=== PATIENT | male | born 1955 | race Caucasian/White ===

== ENCOUNTER 2018-02-03 10:47 | Emergency (ER) | payer SELFPAY ==
[2018-02-03 12:04] LABS: #Basophils 0.1 thou/uL (0.0-0.2); #Eosinphils 0.5 thou/uL (0.0-0.7); #Lymphocytes 1.9 thou/uL (1.20-3.40); #Monocytes 0.4 thou/uL (0.11-0.59); %Basophils 1.2 % (0.0-1.0); %Eosinophils 8.6 % (0.0-10.0); %Lymphocytes 32.6 % (21.0-51.0); %Monocytes 6.9 % (0.0-10.0); %Neutrophils 50.8 % (42.0-75.0); Hemoglobin 15.3 g/dL (14.0-18.0); Mean Corpuscular HGB CONC 35.8 g/dL (32.0-36.0); Mean Corpuscular Hemoglobin 30.3 pg (27.0-31.0); Mean Corpuscular Volume 84.5 fl (80.0-94.0); Mean Platelet Volume 7.4 fL (7.4-10.4); Platelet Count 235 thou/uL (130-400); RBC Distribution Width 12.6 % (11.5-14.5); Red Blood Cell (RBC) Count 5.06 mill/uL (4.70-6.10); White Blood Cell (WBC) Count 5.8 thou/uL (4.8-10.8)
[2018-02-03 12:23] LABS: Anion Gap 12 mmol/L (10-20); BUN (Urea Nitrogen) 15 mg/dL (8.4-25.7); Calc. Creatinine Clearance 0 mL/min (70-130); Calcium 9.2 mg/dL (7.8-10.44); Carbon Dioxide 22 mmol/L (23-31); Chloride 107 mmol/L (98-107); Estimated GFR-MDRD 47; Glucose 114 mg/dL (80-115); Potassium 4.4 mmol/L (3.5-5.1); Sodium 137 mmol/L (136-145)
[2018-02-03 12:26] LABS: CKMB 5.3 ng/mL (0-6.6); Troponin I Less than 0.010 ng/mL (< 0.028)
[2018-02-03] MEDS ORDERED: Amlodipine 5 MG TAB ONE (13:12)
[2018-02-03] MEDS ORDERED: cloNIDine 0.1 MG TAB ONE (14:30)
== END 2018-02-03 14:48 | disposition home or self-care (01) ==
LOC: ERS 10:47
DX: I10 Essential (primary) hypertension (principal); T46.1X5A Adverse effect of calcium-channel blockers, initial encounter; J44.9 Chronic obstructive pulmonary disease, unspecified; Z87.442 Personal history of urinary calculi; Z79.82 Long term (current) use of aspirin; Z79.899 Other long term (current) drug therapy; Z87.891 Personal history of nicotine dependence
CPT/HCPCS: 36415; 80048; 82553; 84484; 85025; 93005

== ENCOUNTER 2019-06-26 15:12 | Observation (INO) | payer SELFPAY ==
[~2019-06-26 15:12] MED LIST: Dexamethasone 20 MG/5 ML VIAL ONE; Lidocaine 1% PF 5 ML VIAL ONE; Ondansetron PF 4 MG/2 ML Vial ONE; PROPOFOL 200 MG/20 ML VIAL ONE
[2019-06-26 16:07] LABS: #Basophils 0.1 thou/uL (0.0-0.2); #Eosinphils 0.3 thou/uL (0.0-0.7); #Lymphocytes 2.4 thou/uL (1.20-3.40); #Monocytes 0.4 thou/uL (0.11-0.59); #Neutrophils 3.4 thou/uL (1.40-6.50); %Basophils 1.5 % (0.0-1.0); %Eosinophils 4.2 % (0.0-10.0); %Lymphocytes 36.3 % (21.0-51.0); %Monocytes 6.1 % (0.0-10.0); %Neutrophils 51.9 % (42.0-75.0); Hemoglobin 13.9 g/dL (14.0-18.0); Mean Corpuscular HGB CONC 35.2 g/dL (32.0-36.0); Mean Corpuscular Hemoglobin 30.5 pg (27.0-31.0); Mean Corpuscular Volume 86.6 fL (78.0-98.0); Mean Platelet Volume 7.4 fL (7.4-10.4); Platelet Count 258 thou/uL (130-400); RBC Distribution Width 12.4 % (11.5-14.5); Red Blood Cell (RBC) Count 4.56 mill/uL (4.70-6.10); White Blood Cell (WBC) Count 6.6 thou/uL (4.8-10.8)
[2019-06-26 16:28] LABS: Anion Gap 13 mmol/L (10-20); BUN (Urea Nitrogen) 23 mg/dL (8.4-25.7); Calc. Creatinine Clearance 0 mL/min (70-130); Calcium 9.4 mg/dL (7.8-10.44); Carbon Dioxide 22 mmol/L (23-31); Chloride 108 mmol/L (98-107); Estimated GFR-MDRD 36; Glucose 101 mg/dL (80-115); Potassium 4.8 mmol/L (3.5-5.1); Sodium 138 mmol/L (136-145)
[2019-06-26] MEDS ORDERED: Bacitracin Zinc Ointment 30 gm TUBE ONE (17:04)
[2019-06-26] MEDS ORDERED: Tobramycin Sulfate 1.2 GM VIAL ONE (17:04)
[2019-06-26] MEDS ORDERED: Sodium Chloride 0.9% 30 ML ONE (17:04)
[2019-06-26] MEDS ORDERED: Bupivacaine PF 0.5% 30 ML VIAL ONE (17:04)
[2019-06-26] MEDS ORDERED: Ondansetron PF 4 MG/2 ML Vial IV PRN (17:29)
[2019-06-26] MEDS ORDERED: Morphine 4 MG/ML VIAL SLOW IVP PRN (17:29)
[2019-06-26] MEDS ORDERED: Bisacodyl 10 MG SUPP PR PRN (17:29)
[2019-06-26] MEDS ORDERED: Milk Of Magnesia 30 ML UDCUP PO PRN (17:29)
[2019-06-26] MEDS ORDERED: Fentanyl 100 MCG/2 ML VIAL SLOW IVP PRN (17:29)
[2019-06-26] MEDS ORDERED: traMADol HCl 50 MG TAB PO PRN (17:29)
[2019-06-26] MEDS ORDERED: Communication Order-Pharmacy FS SCH (17:30)
[2019-06-26] MEDS ORDERED: Meperidine HCl/PF 25 MG/ML VIAL IM PRN (17:34)
[2019-06-26] MEDS ORDERED: Fentanyl 100 MCG/2 ML VIAL ONE (17:38)
[2019-06-26] MEDS ORDERED: Betamet Acet/Betamet Na Ph 30 MG/5 ML VIAL ONE (18:15)
[2019-06-26] MEDS ORDERED: Promethazine HCl 25 MG/ML VIAL IM PRN (18:50)
[2019-06-26] MEDS ORDERED: Ondansetron HCl/PF 4 MG/2 ML Vial IVP PRN (18:50)
[2019-06-26] MEDS ORDERED: Promethazine HCl 25 MG/ML VIAL SLOW IVP PRN (18:50)
[2019-06-26] MEDS ORDERED: Labetalol HCl 100 MG/20 ML VIAL ONE (20:04)
[2019-06-26] MEDS ORDERED: Aspirin 81 mg Enteric Coated Tablet PO SCH (21:00)
[2019-06-26] MEDS ORDERED: Verapamil 120 MG TAB PO PRN (21:23)
[2019-06-26] MEDS ORDERED: cloNIDine 0.2 MG TAB PO SCH (22:00)
[2019-06-26 23:33] VITALS: BMI 31.7
[2019-06-27] MEDS: PROVENTIL INHALER 6.7 G (200 INHALATIONS) INH PRN ×2 (03:30→07:03)
[2019-06-27] MEDS ORDERED: Vancomycin HCl 1 GM in Premix Bag 1 BAG IVPB SCH (04:00)
[2019-06-27] MEDS: Vancomycin HCl 1 GM in Premix Bag 1 BAG IVPB SCH ×2 (05:00→11:38)
[2019-06-27] MEDS: HYDROcodone/Acetaminophen 5/325 mg Tablet PO PRN ×2 (05:45→11:45)
[2019-06-27 06:09] LABS: #Monocytes 0.2 thou/uL (0.11-0.59); #Neutrophils 7.1 thou/uL (1.40-6.50); %Basophils 0.2 % (0.0-1.0); %Eosinophils 0.3 % (0.0-10.0); %Lymphocytes 12.3 % (21.0-51.0); %Monocytes 2.5 % (0.0-10.0); %Neutrophils 84.7 % (42.0-75.0); Hemoglobin 14.5 g/dL (14.0-18.0); Mean Corpuscular HGB CONC 33.7 g/dL (32.0-36.0); Mean Corpuscular Hemoglobin 30.1 pg (27.0-31.0); Mean Corpuscular Volume 89.5 fL (78.0-98.0); Mean Platelet Volume 7.2 fL (7.4-10.4); Platelet Count 254 thou/uL (130-400); RBC Distribution Width 12.6 % (11.5-14.5); White Blood Cell (WBC) Count 8.4 thou/uL (4.8-10.8)
[2019-06-27] MEDS: Mometasone/Formoterol 120 PUFF INHALER INH SCH ×2 (07:06→19:34)
[2019-06-27] MEDS: cloNIDine 0.2 MG TAB PO SCH ×2 (07:53→19:42)
[2019-06-27] MEDS ORDERED: cloNIDine 0.1 MG TAB PO PRN (08:03)
[2019-06-27] MEDS ORDERED: Labetalol HCl 100 MG/20 ML VIAL SLOW IVP PRN (08:03)
[2019-06-27] MEDS ORDERED: Aspirin 81 mg Enteric Coated Tablet PO SCH (09:00)
[2019-06-27] MEDS ORDERED: TETANUS AND DIPHTHERIA TOX/PF 0.5 ML DISP.SYRIN IM SCH (09:00)
--- NOTE | 2019-06-27 09:14 | PDOC.HOSPP ---
- Subjective Encounter Date: 06/27/19 Encounter Time: 08:30 Subjective: Patient seen and examined for med mngt. Follows Dr Lozano. No CP/SOB/ Palpitations. Pain controlled. No new complaints. No overnight events - Objective Vital Signs & Weight: Vital Signs (12 hours) Temp Pulse Resp BP BP Pulse Ox 06/27/19 07:53 146/85 H 06/27/19 07:06 68 16 98 06/27/19 07:03 68 16 98 06/27/19 03:17 97.7 F 68 16 149/80 H 96 06/26/19 23:37 97.9 F 68 18 158/90 H 97 06/26/19 22:18 179/97 H 06/26/19 21:25 97.8 F 61 18 177/98 H 177/98 H 98 Weight Weight 234 lb I&O: 06/26/19 06/27/19 06/28/19 06:59 06:59 06:59 Intake Total 1160 Output Total 700 Balance 460 Result Diagrams: 06/27/19 05:35 06/26/19 16:03 Additional Labs: Laboratory Tests 09/09/15 11/16/16 04:32 11:24 Total Bilirubin 0.6 AST 24 ALT 22 Cholesterol 280 H LDL Cholesterol, Calc 206 HDL Cholesterol 45 EKG Reviewed by me: Yes (Tele strip - SR) Hospitalist ROS - Review of Systems Respiratory: denies: cough, dry, shortness of breath, hemoptysis, SOB with excertion, pleuritic pain, sputum, wheezing, other Cardiovascular: denies: chest pain, palpitations, orthopnea, paroxysmal noc. dyspnea, edema, light headedness, other Gastrointestinal: denies: nausea, vomiting, abdominal pain, diarrhea, constipation, melena, hematochezia, other - Medication Medications: Active Medications Generic Name Dose Route Start Last Admin Trade Name Freq PRN Reason Stop Dose Admin Hydrocodone Bitart/Acetaminophen 2 tab 06/26/19 17:29 06/27/19 05:45 Barnard 5/325 PO 2 tab Q4H PRN Administration Severe Pain (7-10) Albuterol Sulfate 1 puff 06/26/19 21:24 06/27/19 07:03 Proventil Hfa INH 1 puff BIDPRN PRN Administration Wheezing Aspirin 81 mg 06/27/19 09:00 06/27/19 07:52 Ecotrin PO 81 mg DAILY RA Administration Clonidine 0.2 mg 06/27/19 09:00 06/27/19 07:53 Catapres PO 0.2 mg BID RA Administration Vancomycin HCl 1 gm/ Device 200 mls @ 200 mls/hr 06/27/19 04:00 06/27/19 05: 00 IVPB 200 mls 0400,1200 RA Administration Mometasone Furoate/Formoterol Fumar 2 puff 06/27/19 06:30 06/27/19 07:06 Dulera 200 Mcg/5 Mcg Inhaler INH 2 puff BID-RT RA Administration - Exam General Appearance: NAD Neck: supple, no JVD Heart: RRR, no gallops Respiratory: CTAB, no rales Gastrointestinal: soft, non-tender, normal bowel sounds Extremities: no edema Extremities - other findings: Right hand dressing + Neurological: no new deficit Psychiatric: normal affect, A&O x 3 Hosp A/P (1) COPD (chronic obstructive pulmonary disease) Status: Chronic (2) Hyperlipidemia Code(s): E78.5 - HYPERLIPIDEMIA, UNSPECIFIED Status: Chronic Qualifiers: Hyperlipidemia type: unspecified hyperlipidemia (3) Hypertension Code(s): I10 - ESSENTIAL (PRIMARY) HYPERTENSION Status: Chronic Qualifiers: Hypertension type: essential hypertension Qualified Code(s): I10 - Essential (primary) hypertension (4) CKD (chronic kidney disease) stage 3, GFR 30-59 ml/min Code(s): N18.3 - CHRONIC KIDNEY DISEASE, STAGE 3 (MODERATE) Status: Chronic - Plan DVT proph w/SCDs Cont Clonidine Cont Verapamil Add Nebs PRN Cont Symbicort Avoid Nephrotoxic agent
--- NOTE | 2019-06-27 09:40 | OP ---
DATE OF PROCEDURE: 06/26/2019 PREOPERATIVE DIAGNOSES: Abscess with osteomyelitis, right small finger, distal interphalangeal joint with marked joint erosion, irregularity. 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 PROCEDURES PERFORMED: 1. Arthrotomy with bone biopsy/debridement of bone to remove osteomyelitis. 2. Tenotomy by extensor mechanism after joint debridement, where we found great amount of tophi. SPECIMEN SENT: Gout paste from the tendon deposit and gout from the joint along with culture to rule out infection. TOURNIQUET TIME: 15 minutes. ESTIMATED BLOOD LOSS: 10 mL. DESCRIPTION OF PROCEDURE: After successful general endotracheal anesthesia, the limb was prepped and draped. The patient was brought to the emergency room because of possible emergent nature of this intra-articular lesion, possibly being consistent with some type of tumor involvement. After successful general endotracheal anesthesia with the patient having a block of 2 mL at the metacarpophalangeal joint level of the left small finger to augment the anesthesia, the patient then had the C-arm brought to the field, identified the joint, underwent J-shaped lazy type arthrotomy incision exposing the distal interphalangeal joint. We took an awl and placed it in the joint to allow for it to reach more. The patient's incision then was carried through skin and subcutaneous tissue on the mid lateral plane between collateral as well as the extensor mechanism centrally over distal phalangeal ulnar area. Here, under the skin, there was a great amount of tophaceous gout. Tophaceous gout occupied approximately 1/4 of the tendon width at the joint line and this was debrided using a combination of a curette, [place] blade, and irrigation. After we performed the arthrotomy, we could see that there was thick tophaceous gout in the joint and this was debrided as well using the same techniques. Once this was continued circumferentially around the joint, we had debrided it from both making the patient arthrotomy with debridement of the joint from synovial biopsy and bone biopsy accomplished. The tenotomy was completed and the tendon had over 85% of its width intact at any given point. Once we had done this, the patient then had the tourniquet deflated, and we waited for antibiotic bead placement take place and these had been used before and they were used to help with this patient's management. The tourniquet was deflated after we completed the debridement, we irrigated the joint out with Celestone anti-inflammatory steroid, 7 mL slowly, then we performed the wound closure with interrupted 4-0 nylon in a simple pattern and this covered the small beads well. The patient then had a closed wound with a 4-0 nylon, no evidence of anesthetic or operative complication, a bulky dressing was applied with a splint palmarly with the position of function. The patient left the operating room without evidence of anesthetic or operative complication. Job ID: [id number]
[2019-06-27 19:43] VITALS: BP 171/90
[2019-06-27 21:48] VITALS: TEMP 98
== END 2019-06-27 19:45 | disposition home or self-care (01) ==
LOC: ERS 15:12 → SJJU 16:35 → ERS 16:43 → SJJU 19:05
PROVIDERS: ADMIT Orthopaedic Surgery Hand Surgery; ATTEND Orthopaedic Surgery Hand Surgery
PROC: 0PBT0ZZ Excision of Right Finger Phalanx, Open Approach (ICD-10-PCS; principal; 2019-06-26)
PROC: 0L870ZZ Division of Right Hand Tendon, Open Approach (ICD-10-PCS; 2019-06-26)
DX: M86.8X4 Other osteomyelitis, hand (principal); M1A.9XX1 Chronic gout, unspecified, with tophus (tophi); I10 Essential (primary) hypertension; J44.9 Chronic obstructive pulmonary disease, unspecified; Z79.82 Long term (current) use of aspirin; Z79.899 Other long term (current) drug therapy; Z87.891 Personal history of nicotine dependence
CPT/HCPCS: 36415; 80048; 85025; 85652; 87070; 87205; 88304; 89060; 93005; 93010; 96365; 96366; 96375; 99284; C1713; G0378; J0702; J1100; J2001; J2405; J2704; J3010; J3260; J3370; J3490; J7620; S0020

== ENCOUNTER 2019-11-12 05:35 | Day surgery (SDC) | payer SELFPAY ==
[2019-11-12] MEDS ORDERED: Fentanyl 100 MCG/2 ML VIAL ONE (06:21)
[2019-11-12] MEDS ORDERED: Bacitracin Zinc Ointment 30 gm TUBE ONE (06:48)
[2019-11-12] MEDS ORDERED: Bupivacaine PF 0.5% 30 ML VIAL ONE ×2 (06:48→07:31)
[2019-11-12] MEDS ORDERED: Betamet Acet/Betamet Na Ph 30 MG/5 ML VIAL ONE (08:01)
[2019-11-12] MEDS ORDERED: Ketorolac Tromethamine 30 MG/ML VIAL ONE (08:36)
[2019-11-12] MEDS ORDERED: Ondansetron PF 4 MG/2 ML Vial ONE (13:17)
[2019-11-12] MEDS ORDERED: Lidocaine 1% PF 5 ML VIAL ONE (13:17)
[2019-11-12] MEDS ORDERED: Dexamethasone 20 MG/5 ML VIAL ONE (13:17)
[2019-11-12] MEDS ORDERED: PROPOFOL 200 MG/20 ML VIAL ONE (13:17)
[2019-11-12] MEDS ORDERED: ePHEDrine/0.9% NaCl/PF SYRINGE 50 mg/10 ml ONE (13:17)
--- NOTE | 2019-11-12 15:29 | OP ---
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 PROCEDURE PERFORMED: 1. Removal of antibiotic beads slightly dorsal and then lateral to the joint. 2. Removal of gouty tophi. COMPLICATIONS: None. ESTIMATED BLOOD LOSS: 10 mL. TOURNIQUET TIME: 18 minutes using a finger cot tourniquet method. SPECIMENS SENT: Gouty tophi and the antibiotic bead. DESCRIPTION OF PROCEDURE: After successful general endotracheal anesthesia, the limb was prepped and draped. Before prepping and draping, the patient had LMA placed and we then gave a 10 mL 0.5% Marcaine metacarpophalangeal block before prepping and draping. We then exsanguinated the limb using a finger cot tourniquet technique and we immediately used his old J-shaped incision centered over the dorsal DIP joint, carried through skin and subcutaneous tissue and C-arm was localized at one bead that was slightly dorsal and directly lateral till we removed this. There was tophi escaping from a defect in the tendon approximately 0.5 mm, so we opened the tendon, inspected it. There was no bead or infection, but there was gouty tophi. We removed all the gouty tophi visual from here and from the joint. We irrigated the area with 250 mL of normal saline. Then we infiltrated the remainder of the joint which was almost autofused with 5 mL of Celestone. We closed the tendon longitudinal defect with an interrupted [id number] 5-0 Monocryl, removed the finger cot tourniquet completely, so it was completely off the field with excellent return of circulation to the digit. We obtained hemostasis and closed the epidermis and dermis of one layer with interrupted 5-0 nylon of simple pattern. The patient left the operating room with C-arm confirming the joint was near autofused, there was no further antibiotic beads and no dislocation or subluxation. Job ID: [id number]
--- NOTE | 2019-11-12 16:35 | RAD ---
EXAM: INTRAOPERATIVE FLUOROSCOPY: 11/12/19 HISTORY: Foreign body removal. FINDINGS: Four fluoroscopic views of the fifth digit are noted. There appears to be destructive ndiaye e along the distal interphalangeal joint space. EXPOSURE: 0.4 mGy. 8 milliseconds. IMPRESSION: As above. POS: MANI
== END 2019-11-12 11:33 | disposition home or self-care (01) ==
LOC: SDC 05:35
PROVIDERS: ATTEND Orthopaedic Surgery Hand Surgery
PROC: 0PP Upper Bones, Removal (ICD-10-PCS; principal; 2019-11-12)
DX: M1A.9XX1 Chronic gout, unspecified, with tophus (tophi) (principal); I10 Essential (primary) hypertension; J44.9 Chronic obstructive pulmonary disease, unspecified; E78.5 Hyperlipidemia, unspecified; Z87.891 Personal history of nicotine dependence; Z79.899 Other long term (current) drug therapy
CPT/HCPCS: 76000; 88300; 88305; J0690; J0702; J1100; J1885; J2001; J2405; J2704; J3010; J3490; S0020

== ENCOUNTER 2022-06-16 06:49 | Outpatient (CLI) | payer MEDICARE | END 2022-06-16 06:50 | disposition home or self-care (01) | LOC: BICULT 06:49 | PROVIDERS: ATTEND Family Medicine | DX: Z12.2 Encounter for screening for malignant neoplasm of respiratory organs (principal); Z13.6 Encounter for screening for cardiovascular disorders; Z87.891 Personal history of nicotine dependence | CPT/HCPCS: 71271; 76775 ==

== ENCOUNTER 2022-10-26 10:56 | Emergency (ER) | payer MEDICARE ==
[~2022-10-26 10:56] MED LIST changes: -Dexamethasone 20 MG/5 ML VIAL ONE; +Iopamidol-370 76% 500 ML 1 ML ONE; -Lidocaine 1% PF 5 ML VIAL ONE; -Ondansetron PF 4 MG/2 ML Vial ONE; -PROPOFOL 200 MG/20 ML VIAL ONE
[2022-10-26 11:34] LABS: #Eosinphils 0.5 thou/uL (0.0-0.7); #Lymphocytes 1.8 thou/uL (1.20-3.40); #Monocytes 0.5 thou/uL (0.11-0.59); #Neutrophils 5.2 thou/uL (1.40-6.50); %Basophils 0.6 % (0.0-1.0); %Eosinophils 5.6 % (0.0-10.0); %Lymphocytes 22.1 % (21.0-51.0); %Monocytes 6.4 % (0.0-10.0); %Neutrophils 65.3 % (42.0-75.0); Hemoglobin 13.8 g/dL (14.0-18.0); Mean Corpuscular HGB CONC 33.1 g/dL (32.0-36.0); Mean Corpuscular Hemoglobin 29.4 pg (27.0-31.0); Mean Corpuscular Volume 88.9 fl (78.0-98.0); Mean Platelet Volume 8.4 fL (7.4-10.4); Platelet Count 282 10x3/uL (130-400); RBC Distribution Width 12.6 % (11.5-14.5); Red Blood Cell (RBC) Count 4.69 mill/uL (4.70-6.10)
[2022-10-26 11:39] LABS: ALT (SGPT) 22 U/L (8-55); AST (SGOT) 24 U/L (5-34); Albumin 3.8 g/dL (3.4-4.8); Alkaline Phosphatase 97 U/L (40-110); Anion Gap 15 mmol/L (10-20); BUN (Urea Nitrogen) 15 mg/dL (8.4-25.7); Bilirubin, Total 0.8 mg/dL (0.2-1.2); CK (CPK) 155 U/L (30-200); Calc. Creatinine Clearance 0 mL/min (70-130); Carbon Dioxide 24 mmol/L (23-31); Chloride 108 mmol/L (98-107); Estimated GFR 32; Globulin 2.5 g/dL (2.4-3.5); Glucose 152 mg/dL (80-115); Potassium 4.6 mmol/L (3.5-5.1); Protein, Total 6.3 g/dL (5.8-8.1); Sodium 142 mmol/L (136-145)
== END 2022-10-26 19:50 | disposition home or self-care (01) ==
LOC: ERS 10:56
DX: J44.9 Chronic obstructive pulmonary disease, unspecified (principal); N17.9 Acute kidney failure, unspecified; I10 Essential (primary) hypertension
CPT/HCPCS: 36415; 71045; 71275; 80053; 82550; 83880; 84484; 85025; 93005; Q9967

== ENCOUNTER 2022-12-22 07:33 | Outpatient (CLI) | payer MEDICARE | END 2022-12-22 07:34 | disposition home or self-care (01) | LOC: BICULT 07:33 | PROVIDERS: ATTEND Internal Medicine Nephrology | DX: I12.9 Hypertensive chronic kidney disease with stage 1 through stage 4 chronic kidney disease, or unspecified chronic kidney disease (principal); N18.30 Chronic kidney disease, stage 3 unspecified; R93.422 Abnormal radiologic findings on diagnostic imaging of left kidney | CPT/HCPCS: 76770; 93975 ==

== ENCOUNTER 2022-12-23 12:35 | Outpatient (CLI) | payer MEDICARE | END 2022-12-23 12:36 | disposition home or self-care (01) | LOC: ULT 12:35 | PROVIDERS: ATTEND Internal Medicine Cardiovascular Disease | DX: R06.02 Shortness of breath (principal); I34.0 Nonrheumatic mitral (valve) insufficiency; I35.8 Other nonrheumatic aortic valve disorders; I07.1 Rheumatic tricuspid insufficiency; I37.1 Nonrheumatic pulmonary valve insufficiency | CPT/HCPCS: 93306 ==

== ENCOUNTER 2023-05-26 09:44 | Emergency (ER) | payer MEDICARE ==
[2023-05-26 10:46] LABS: #Basophils 0.1 thou/uL (0.0-0.2); #Monocytes 0.3 thou/uL (0.11-0.59); #Neutrophils 7.8 thou/uL (1.40-6.50); %Basophils 0.5 % (0.0-1.0); %Eosinophils 0.4 % (0.0-10.0); %Lymphocytes 9.7 % (21.0-51.0); %Monocytes 2.9 % (0.0-10.0); %Neutrophils 85.1 % (42.0-75.0); Hematocrit 39.2 % (42.0-52.0); Hemoglobin 12.8 g/dL (14.0-18.0); Mean Corpuscular HGB CONC 32.7 g/dL (32.0-36.0); Mean Corpuscular Hemoglobin 28.7 pg (27.0-31.0); Mean Corpuscular Volume 87.9 fl (78.0-98.0); Mean Platelet Volume 9.9 fL (7.4-10.4); Platelet Count 324 10x3/uL (130-400); RBC Distribution Width 14.4 % (11.5-14.5); Red Blood Cell (RBC) Count 4.46 mill/uL (4.70-6.10); White Blood Cell (WBC) Count 9.2 10x3/uL (4.8-10.8)
[2023-05-26] MEDS ORDERED: Lidocaine 1% PF 5 ML VIAL ONE (11:10)
[2023-05-26 11:11] LABS: ALT (SGPT) 21 U/L (8-55); AST (SGOT) 17 U/L (5-34); Albumin 3.9 g/dL (3.4-4.8); Alkaline Phosphatase 86 U/L (40-110); Anion Gap 17 mmol/L (10-20); BUN (Urea Nitrogen) 27 mg/dL (8.4-25.7); Bilirubin, Total 0.6 mg/dL (0.2-1.2); Calc. Creatinine Clearance 0 mL/min (70-130); Calcium 9.4 mg/dL (7.8-10.44); Carbon Dioxide 23 mmol/L (23-31); Chloride 106 mmol/L (98-107); Estimated GFR 26; Globulin 3.4 g/dL (2.4-3.5); Glucose 149 mg/dL (80-115); Potassium 4.8 mmol/L (3.5-5.1); Protein, Total 7.3 g/dL (5.8-8.1); Sodium 141 mmol/L (136-145)
== END 2023-05-26 12:22 | disposition home or self-care (01) ==
LOC: ERS 09:44
DX: M70.22 Olecranon bursitis, left elbow (principal); I12.9 Hypertensive chronic kidney disease with stage 1 through stage 4 chronic kidney disease, or unspecified chronic kidney disease; N18.9 Chronic kidney disease, unspecified; J44.9 Chronic obstructive pulmonary disease, unspecified
CPT/HCPCS: 36415; 80053; 85025; 85652; 86140

== ENCOUNTER 2023-11-01 20:42 | Inpatient (IN) | payer MEDICARE ==
[2023-11-01 21:11] LABS: #Eosinphils 0.1 thou/uL (0.0-0.7); #Monocytes 0.7 thou/uL (0.11-0.59); #Neutrophils 12.3 thou/uL (1.40-6.50); %Basophils 0.1 % (0.0-1.0); %Eosinophils 0.8 % (0.0-10.0); %Lymphocytes 8.5 % (21.0-51.0); %Monocytes 4.7 % (0.0-10.0); %Neutrophils 85.4 % (42.0-75.0); Hematocrit 38.3 % (42.0-52.0); Hemoglobin 12.9 g/dL (14.0-18.0); Mean Corpuscular HGB CONC 33.7 g/dL (32.0-36.0); Mean Corpuscular Hemoglobin 28.2 pg (27.0-31.0); Mean Corpuscular Volume 83.6 fl (78.0-98.0); Mean Platelet Volume 10.9 fL (7.4-10.4); Platelet Count 293 10x3/uL (130-400); RBC Distribution Width 14.2 % (11.5-14.5); Red Blood Cell (RBC) Count 4.58 mill/uL (4.70-6.10); White Blood Cell (WBC) Count 14.4 10x3/uL (4.8-10.8)
[2023-11-01 21:34] LABS: ALT (SGPT) 23 U/L (8-55); AST (SGOT) 23 U/L (5-34); Albumin 3.6 g/dL (3.4-4.8); Alkaline Phosphatase 96 U/L (40-110); Anion Gap 14 mmol/L (10-20); BUN (Urea Nitrogen) 23 mg/dL (8.4-25.7); Bilirubin, Total 0.6 mg/dL (0.2-1.2); Calc. Creatinine Clearance 0 mL/min (70-130); Calcium 9.3 mg/dL (7.8-10.44); Carbon Dioxide 22 mmol/L (23-31); Chloride 103 mmol/L (98-107); Estimated GFR 25; Globulin 3.4 g/dL (2.4-3.5); Glucose 191 mg/dL (80-115); Potassium 4.4 mmol/L (3.5-5.1); Sodium 135 mmol/L (136-145)
[2023-11-01] MEDS ORDERED: Ketorolac Tromethamine 30 MG (1 mL) VIAL ONE (21:47)
[2023-11-01] MEDS ORDERED: Acetaminophen 500 MG TAB ONE (21:47)
[2023-11-01] MEDS ORDERED: Clindamycin/D5W 600 mg/50 ml Premix Bag ONE (21:47)
[2023-11-01] MEDS ORDERED: Cefepime 2 GM VIAL ONE (21:47)
[2023-11-01] MEDS ORDERED: Ondansetron ODT 4 MG TAB PO PRN (23:14)
[2023-11-01] MEDS ORDERED: Ondansetron PF 4 MG/2 ML Vial IVP PRN (23:14)
[2023-11-01] MEDS ORDERED: Acetaminophen 650 MG Suppository PR PRN (23:14)
[2023-11-01] MEDS ORDERED: HYDROcodone/Acetaminophen 5/325 mg Tablet PO PRN (23:14)
[2023-11-01] MEDS ORDERED: Acetaminophen 325 MG TAB PO PRN (23:14)
[2023-11-02 00:35] LABS: Lactic Acid 1.2 mmol/L (0.5-2.2)
[2023-11-02 01:53] VITALS: BMI 30.8
[2023-11-02] MEDS ORDERED: Clindamycin/D5W 600 MG in Premix 1 BAG IVPB SCH ×3 (06:00→14:00)
[2023-11-02 06:39] LABS: #Eosinphils 0.1 thou/uL (0.0-0.7); #Monocytes 0.7 thou/uL (0.11-0.59); %Basophils 0.2 % (0.0-1.0); %Eosinophils 0.9 % (0.0-10.0); %Monocytes 6.4 % (0.0-10.0); Hemoglobin 11.9 g/dL (14.0-18.0); Mean Corpuscular HGB CONC 32.2 g/dL (32.0-36.0); Mean Corpuscular Hemoglobin 27.7 pg (27.0-31.0); Mean Platelet Volume 10.8 fL (7.4-10.4); Platelet Count 240 10x3/uL (130-400); RBC Distribution Width 14.3 % (11.5-14.5); White Blood Cell (WBC) Count 11.6 10x3/uL (4.8-10.8)
[2023-11-02 06:48] LABS: Hemoglobin A1c 6.7 % (4.0-6.0)
[2023-11-02 07:01] LABS: Anion Gap 14 mmol/L (10-20); BUN (Urea Nitrogen) 24 mg/dL (8.4-25.7); Calc. Creatinine Clearance 38 mL/min (70-130); Calcium 8.9 mg/dL (7.8-10.44); Carbon Dioxide 23 mmol/L (23-31); Chloride 105 mmol/L (98-107); Estimated GFR 23; Glucose 131 mg/dL (80-115); Potassium 4.2 mmol/L (3.5-5.1); Sodium 138 mmol/L (136-145)
[2023-11-02] MEDS: Mometasone 200 MCG HFA INHALER (RT USE) INH SCH ×2 (08:30→19:26)
[2023-11-02] MEDS ORDERED: Vancomycin 1 GM in Premix 1 BAG IVPB SCH (09:00)
[2023-11-02] MEDS ORDERED: Cefepime 2 GM in Sodium Chloride 0.9% 100 ML IVPB SCH (09:00)
[2023-11-02] MEDS: cloNIDine 0.2 MG TAB PO SCH ×3 (09:16→22:10)
[2023-11-02] MEDS: Enoxaparin 40 MG (0.4 mL) SYRINGE SC SCH (09:16)
[2023-11-02] MEDS: Verapamil 240 MG SR.TAB PO SCH (11:10)
[2023-11-02] MEDS: Cefepime 1 GM in Sodium Chloride 0.9% 100 ML IVPB SCH (14:22)
[2023-11-02] MEDS: Ketorolac Tromethamine 30 MG (1 mL) VIAL IVP PRN ×2 (14:30→22:23)
[2023-11-02] MEDS: Vancomycin 1 GM in Premix 1 BAG IVPB SCH (22:10)
[2023-11-02] MEDS: Aspirin Chewable 81 MG TAB PO SCH (22:10)
[2023-11-03] MEDS: Cefepime 1 GM in Sodium Chloride 0.9% 100 ML IVPB SCH ×2 (01:51→11:47)
[2023-11-03 04:46] LABS: #Eosinphils 0.2 thou/uL (0.0-0.7); #Monocytes 0.5 thou/uL (0.11-0.59); #Neutrophils 6.2 thou/uL (1.40-6.50); %Basophils 0.2 % (0.0-1.0); %Eosinophils 2.5 % (0.0-10.0); %Lymphocytes 17.9 % (21.0-51.0); %Neutrophils 72.6 % (42.0-75.0); Hematocrit 33.7 % (42.0-52.0); Hemoglobin 11.1 g/dL (14.0-18.0); Mean Corpuscular HGB CONC 32.9 g/dL (32.0-36.0); Mean Corpuscular Hemoglobin 28.3 pg (27.0-31.0); Mean Platelet Volume 10.6 fL (7.4-10.4); Platelet Count 237 10x3/uL (130-400); RBC Distribution Width 14.3 % (11.5-14.5); Red Blood Cell (RBC) Count 3.92 mill/uL (4.70-6.10); White Blood Cell (WBC) Count 8.6 10x3/uL (4.8-10.8)
[2023-11-03 05:14] LABS: ALT (SGPT) 21 U/L (8-55); AST (SGOT) 24 U/L (5-34); Albumin 3.2 g/dL (3.4-4.8); Alkaline Phosphatase 86 U/L (40-110); Anion Gap 13 mmol/L (10-20); BUN (Urea Nitrogen) 32 mg/dL (8.4-25.7); Bilirubin, Total 0.4 mg/dL (0.2-1.2); CRP (Inflammatory) 22.69 mg/dL (= or < 0.5); Calc. Creatinine Clearance 40 mL/min (70-130); Carbon Dioxide 23 mmol/L (23-31); Chloride 107 mmol/L (98-107); Estimated GFR 25; Glucose 121 mg/dL (80-115); Potassium 4.4 mmol/L (3.5-5.1); Protein, Total 6.2 g/dL (5.8-8.1); Sodium 139 mmol/L (136-145)
[2023-11-03] MEDS ORDERED: Clindamycin/D5W 600 MG in Premix 1 BAG IVPB SCH (06:00)
[2023-11-03] MEDS ORDERED: Ondansetron PF 4 MG/2 ML Vial ONE (06:33)
[2023-11-03] MEDS ORDERED: PROPOFOL 20 ML ONE (06:33)
[2023-11-03] MEDS ORDERED: Dexamethasone 20 MG/5 ML VIAL ONE (06:33)
[2023-11-03] MEDS ORDERED: Lidocaine 1% PF 5 ML VIAL ONE (06:33)
[2023-11-03] MEDS ORDERED: fentaNYL PF 100 MCG/2 ML SYRINGE ONE (06:33)
[2023-11-03] MEDS ORDERED: Lidocaine 2% 6 ML (Jelly) SYR ONE (06:35)
[2023-11-03] MEDS ORDERED: Vancomycin 1 GM VIAL ONE (06:36)
[2023-11-03] MEDS ORDERED: Ondansetron HCl/PF 4 MG/2 ML Vial IVP PRN (06:58)
[2023-11-03] MEDS ORDERED: Promethazine HCl 25 MG/ML VIAL IM PRN (06:58)
[2023-11-03] MEDS ORDERED: HYDROmorphone 2 MG/ML VIAL SLOW IVP PRN (06:58)
[2023-11-03] MEDS ORDERED: Ipratropium/Albuterol 3 ML NEB ONE ×2 (07:05)
[2023-11-03] MEDS ORDERED: Ipratropium/Albuterol 3 ML NEB NEB SCH (07:15)
[2023-11-03] MEDS: Mometasone 200 MCG HFA INHALER (RT USE) INH SCH ×2 (07:16→18:48)
[2023-11-03] MEDS ORDERED: ePHEDrine Sulfate 50 MG/10 ML VIAL ONE (07:42)
[2023-11-03] MEDS: cloNIDine 0.2 MG TAB PO SCH ×3 (08:46→21:06)
[2023-11-03] MEDS: Verapamil 240 MG SR.TAB PO SCH (10:00)
[2023-11-03] MEDS: Ketorolac Tromethamine 30 MG (1 mL) VIAL IVP PRN ×2 (11:57→22:20)
[2023-11-03 20:53] LABS: Vancomycin, Trough 5.5 ug/mL
[2023-11-03] MEDS: Aspirin Chewable 81 MG TAB PO SCH (21:08)
[2023-11-03] MEDS: Vancomycin 1 GM in Premix 1 BAG IVPB SCH (21:11)
[2023-11-03] MEDS ORDERED: Vancomycin (BATCH) 1.75 GM in Premix 1 BAG IVPB SCH (21:15)
[2023-11-03] MEDS: Ipratropium/Albuterol 3 ML NEB NEB PRN (22:19)
[2023-11-04] MEDS: Cefepime 1 GM in Sodium Chloride 0.9% 100 ML IVPB SCH ×2 (00:07→12:05)
[2023-11-04] MEDS: Ketorolac Tromethamine 30 MG (1 mL) VIAL IVP PRN ×2 (06:27→22:20)
[2023-11-04 06:33] LABS: #Monocytes 0.5 thou/uL (0.11-0.59); #Neutrophils 7.8 thou/uL (1.40-6.50); %Basophils 0.2 % (0.0-1.0); %Eosinophils 0.4 % (0.0-10.0); %Lymphocytes 10.8 % (21.0-51.0); %Monocytes 5.1 % (0.0-10.0); %Neutrophils 82.5 % (42.0-75.0); Hematocrit 33.8 % (42.0-52.0); Hemoglobin 10.8 g/dL (14.0-18.0); Mean Corpuscular Hemoglobin 27.6 pg (27.0-31.0); Mean Corpuscular Volume 86.4 fl (78.0-98.0); Mean Platelet Volume 10.9 fL (7.4-10.4); Platelet Count 161 10x3/uL (130-400); RBC Distribution Width 14.3 % (11.5-14.5); Red Blood Cell (RBC) Count 3.91 mill/uL (4.70-6.10); White Blood Cell (WBC) Count 9.4 10x3/uL (4.8-10.8)
[2023-11-04] MEDS: Mometasone 200 MCG HFA INHALER (RT USE) INH SCH ×2 (06:51→18:29)
[2023-11-04 07:00] LABS: Anion Gap 15 mmol/L (10-20); BUN (Urea Nitrogen) 33 mg/dL (8.4-25.7); Calc. Creatinine Clearance 47 mL/min (70-130); Calcium 8.8 mg/dL (7.8-10.44); Carbon Dioxide 21 mmol/L (23-31); Chloride 109 mmol/L (98-107); Estimated GFR 31; Glucose 130 mg/dL (80-115); Potassium 5.1 mmol/L (3.5-5.1); Sodium 140 mmol/L (136-145)
[2023-11-04 07:04] LABS: Vancomycin, Random 19.2 ug/mL (See Comment)
[2023-11-04] MEDS: Verapamil 240 MG SR.TAB PO SCH (09:40)
[2023-11-04] MEDS: Famotidine 20 MG TAB PO SCH (09:40)
[2023-11-04] MEDS: cloNIDine 0.2 MG TAB PO SCH ×3 (09:40→20:47)
[2023-11-04] MEDS: Enoxaparin 40 MG (0.4 mL) SYRINGE SC SCH (09:40)
[2023-11-04] MEDS: Vancomycin HCl 500 MG in Sodium Chloride 0.9% 100 ML IVPB SCH ×2 (10:19→20:46)
[2023-11-04] MEDS: HYDROcodone/Acetaminophen 5/325 mg Tablet PO PRN (10:20)
[2023-11-04] MEDS: Aspirin Chewable 81 MG TAB PO SCH (20:47)
[2023-11-05] MEDS: Cefepime 1 GM in Sodium Chloride 0.9% 100 ML IVPB SCH ×3 (00:06→23:03)
[2023-11-05] MEDS: Ipratropium/Albuterol 3 ML NEB NEB PRN ×2 (03:55→19:27)
[2023-11-05 05:54] LABS: #Eosinphils 0.2 thou/uL (0.0-0.7); #Monocytes 0.4 thou/uL (0.11-0.59); #Neutrophils 5.6 thou/uL (1.40-6.50); %Basophils 0.2 % (0.0-1.0); %Eosinophils 1.8 % (0.0-10.0); %Lymphocytes 25.8 % (21.0-51.0); %Monocytes 5.2 % (0.0-10.0); %Neutrophils 66.2 % (42.0-75.0); Hemoglobin 11.4 g/dL (14.0-18.0); Mean Corpuscular HGB CONC 32.6 g/dL (32.0-36.0); Mean Corpuscular Hemoglobin 28.2 pg (27.0-31.0); Mean Corpuscular Volume 86.6 fl (78.0-98.0); Mean Platelet Volume 10.1 fL (7.4-10.4); RBC Distribution Width 14.3 % (11.5-14.5); Red Blood Cell (RBC) Count 4.04 mill/uL (4.70-6.10); White Blood Cell (WBC) Count 8.5 10x3/uL (4.8-10.8)
[2023-11-05 05:59] LABS: Platelet Count 290 10x3/uL (130-400)
[2023-11-05] MEDS: Mometasone 200 MCG HFA INHALER (RT USE) INH SCH ×2 (06:51→18:23)
[2023-11-05 07:51] LABS: Anion Gap 13 mmol/L (10-20); BUN (Urea Nitrogen) 28 mg/dL (8.4-25.7); Calc. Creatinine Clearance 55 mL/min (70-130); Calcium 9.1 mg/dL (7.8-10.44); Carbon Dioxide 21 mmol/L (23-31); Chloride 109 mmol/L (98-107); Estimated GFR 37; Glucose 118 mg/dL (80-115); Potassium 4.3 mmol/L (3.5-5.1); Sodium 139 mmol/L (136-145)
[2023-11-05] MEDS: cloNIDine 0.2 MG TAB PO SCH ×3 (07:59→21:20)
[2023-11-05] MEDS: Famotidine 20 MG TAB PO SCH (07:59)
[2023-11-05] MEDS: Verapamil 240 MG SR.TAB PO SCH (07:59)
[2023-11-05] MEDS: Vancomycin HCl 500 MG in Sodium Chloride 0.9% 100 ML IVPB SCH ×2 (11:01→21:22)
[2023-11-05] MEDS: Ketorolac Tromethamine 30 MG (1 mL) VIAL IVP PRN ×2 (11:08→23:19)
[2023-11-05] MEDS: Enoxaparin 40 MG (0.4 mL) SYRINGE SC SCH (11:18)
[2023-11-05 20:29] LABS: Vancomycin, Trough 14.7 ug/mL
[2023-11-05] MEDS: Aspirin Chewable 81 MG TAB PO SCH (21:20)
[2023-11-06 04:40] LABS: #Eosinphils 0.2 thou/uL (0.0-0.7); #Monocytes 0.5 thou/uL (0.11-0.59); #Neutrophils 5.7 thou/uL (1.40-6.50); %Basophils 0.2 % (0.0-1.0); %Eosinophils 2.8 % (0.0-10.0); %Monocytes 6.3 % (0.0-10.0); %Neutrophils 66.4 % (42.0-75.0); Hematocrit 34.7 % (42.0-52.0); Hemoglobin 11.2 g/dL (14.0-18.0); Mean Corpuscular HGB CONC 32.3 g/dL (32.0-36.0); Mean Corpuscular Hemoglobin 27.9 pg (27.0-31.0); Mean Corpuscular Volume 86.3 fl (78.0-98.0); Mean Platelet Volume 10.3 fL (7.4-10.4); Platelet Count 322 10x3/uL (130-400); RBC Distribution Width 14.2 % (11.5-14.5); Red Blood Cell (RBC) Count 4.02 mill/uL (4.70-6.10); White Blood Cell (WBC) Count 8.6 10x3/uL (4.8-10.8)
[2023-11-06 05:03] LABS: Anion Gap 13 mmol/L (10-20); BUN (Urea Nitrogen) 26 mg/dL (8.4-25.7); CRP (Inflammatory) 8.62 mg/dL (= or < 0.5); Calc. Creatinine Clearance 55 mL/min (70-130); Calcium 8.8 mg/dL (7.8-10.44); Carbon Dioxide 21 mmol/L (23-31); Chloride 110 mmol/L (98-107); Estimated GFR 37; Glucose 101 mg/dL (80-115); Potassium 4.5 mmol/L (3.5-5.1); Sodium 139 mmol/L (136-145)
[2023-11-06] MEDS: Mometasone 200 MCG HFA INHALER (RT USE) INH SCH ×2 (08:09→20:04)
[2023-11-06] MEDS: Ipratropium/Albuterol 3 ML NEB NEB PRN (08:10)
[2023-11-06] MEDS: Famotidine 20 MG TAB PO SCH (08:27)
[2023-11-06] MEDS: cloNIDine 0.2 MG TAB PO SCH ×3 (08:27→21:45)
[2023-11-06] MEDS: Verapamil 240 MG SR.TAB PO SCH (08:27)
[2023-11-06] MEDS: Enoxaparin 40 MG (0.4 mL) SYRINGE SC SCH (08:28)
[2023-11-06] MEDS: Vancomycin HCl 500 MG in Sodium Chloride 0.9% 100 ML IVPB SCH ×2 (08:29→21:45)
[2023-11-06] MEDS ORDERED: Polyethylene Glycol 3350 17 GM Packet PO SCH (09:00)
[2023-11-06] MEDS: Ketorolac Tromethamine 30 MG (1 mL) VIAL IVP PRN ×2 (10:25→21:47)
[2023-11-06] MEDS: Cefepime 1 GM in Sodium Chloride 0.9% 100 ML IVPB SCH (10:28)
[2023-11-06] MEDS: Aspirin Chewable 81 MG TAB PO SCH (21:45)
[2023-11-07] MEDS: Cefepime 1 GM in Sodium Chloride 0.9% 100 ML IVPB SCH (00:50)
[2023-11-07 07:01] LABS: Anion Gap 13 mmol/L (10-20); BUN (Urea Nitrogen) 23 mg/dL (8.4-25.7); Calc. Creatinine Clearance 56 mL/min (70-130); Calcium 8.8 mg/dL (7.8-10.44); Carbon Dioxide 22 mmol/L (23-31); Chloride 110 mmol/L (98-107); Estimated GFR 37; Glucose 104 mg/dL (80-115); Potassium 4.8 mmol/L (3.5-5.1); Sodium 140 mmol/L (136-145)
[2023-11-07 07:24] VITALS: TEMP 98.1
[2023-11-07] MEDS ORDERED: Polyethylene Glycol 3350 17 GM Packet PO SCH (09:00)
[2023-11-07] MEDS: Enoxaparin 40 MG (0.4 mL) SYRINGE SC SCH (09:58)
[2023-11-07] MEDS: Famotidine 20 MG TAB PO SCH (09:59)
[2023-11-07] MEDS: Verapamil 240 MG SR.TAB PO SCH (09:59)
[2023-11-07] MEDS: cloNIDine 0.2 MG TAB PO SCH (09:59)
[2023-11-07] MEDS: HYDROcodone/Acetaminophen 5/325 mg Tablet PO PRN (09:59)
[2023-11-07] MEDS: Mometasone 200 MCG HFA INHALER (RT USE) INH SCH (10:38)
[2023-11-07 12:03] VITALS: BP 111/66
== END 2023-11-07 15:39 | disposition home or self-care (01) | DRG 854 ==
LOC: SUATTDRO 20:42 → ERS 20:42 → SJJU 23:17
PROVIDERS: ADMIT Family Medicine; ATTEND Family Medicine
PROC: 02HV33Z Insertion of Infusion Device into Superior Vena Cava, Percutaneous Approach (ICD-10-PCS; principal; 2023-11-01)
PROC: B548ZZA Ultrasonography of Superior Vena Cava, Guidance (ICD-10-PCS; 2023-11-01)
PROC: 3E03329 Introduction of Other Anti-infective into Peripheral Vein, Percutaneous Approach (ICD-10-PCS; 2023-11-01)
PROC: 0JBG0ZZ Excision of Right Lower Arm Subcutaneous Tissue and Fascia, Open Approach (ICD-10-PCS; 2023-11-03)
DX: A41.9 Sepsis, unspecified organism (principal); L03.113 Cellulitis of right upper limb; N17.9 Acute kidney failure, unspecified; N18.4 Chronic kidney disease, stage 4 (severe); I12.9 Hypertensive chronic kidney disease with stage 1 through stage 4 chronic kidney disease, or unspecified chronic kidney disease; M71.141 Other infective bursitis, right hand; M70.21 Olecranon bursitis, right elbow; E11.22 Type 2 diabetes mellitus with diabetic chronic kidney disease; J44.9 Chronic obstructive pulmonary disease, unspecified; Z98.890 Other specified postprocedural states; Z79.82 Long term (current) use of aspirin; Z79.899 Other long term (current) drug therapy
CPT/HCPCS: 36415; 36416; 36556; 71045; 80048; 80053; 80202; 82565; 83036; 83605; 85025; 86140; 87040; 87070; 87205; 94664; 94760; 96374; 96375; 97139; J0692; J1100; J1642; J1650; J1885; J2405; J2704; J3370; J3370-JW; J3490; J7620

== ENCOUNTER 2024-07-31 19:42 | Inpatient (IN) | payer MEDICARE ==
[2024-07-31] MEDS ORDERED: Nitroglycerin 0.4 MG TAB 1 EACH ONE (20:41)
[2024-07-31] MEDS ORDERED: Sodium Chloride 0.9% 100 ML ONE (20:42)
[2024-07-31] MEDS ORDERED: methylPREDNISolone Sod Succ/PF 125 MG/2 ML VIAL ONE (20:42)
[2024-07-31] MEDS ORDERED: Azithromycin 500 MG VIAL ONE (20:42)
[2024-07-31] MEDS ORDERED: cefTRIAXone (ROCEPHIN) 2 GM VIAL ONE (20:42)
[2024-07-31] MEDS ORDERED: Aspirin Chewable 81 MG TAB ONE (20:44)
[2024-07-31 20:59] LABS: #Basophils 0.03 10x3/uL (0.0-0.2); #Eosinophils Less than 0.03 10x3/uL (0.0-0.7); %Basophils 0.2 % (0.0-1.0); %Monocytes 1.7 % (0.0-10.0); %Neutrophils 88.6 % (42.0-75.0); Hematocrit 21.9 % (42.0-52.0); Mean Corpuscular Hemoglobin 28.6 pg (27.0-31.0); Mean Corpuscular Volume 89.4 fL (78.0-98.0); Mean Platelet Volume 10.2 fL (7.4-10.4); Platelet Count 532 10x3/uL (130-400); RBC Distribution Width 14.1 % (11.5-14.5); Red Blood Cell (RBC) Count 2.45 mill/uL (4.70-6.10)
[2024-07-31 21:13] LABS: ALT (SGPT) 24 U/L (8-55); AST (SGOT) 42 U/L (5-34); Albumin 3.4 g/dL (3.4-4.8); Alkaline Phosphatase 107 U/L (40-110); Anion Gap 15 mmol/L (10-20); BUN (Urea Nitrogen) 27 mg/dL (8.4-25.7); Bilirubin, Total 0.4 mg/dL (0.2-1.2); Calc. Creatinine Clearance 0 mL/min (70-130); Calcium 9.3 mg/dL (7.8-10.44); Carbon Dioxide 21 mmol/L (23-31); Chloride 110 mmol/L (98-107); Estimated GFR 22; Globulin 3.7 g/dL (2.4-3.5); Glucose 140 mg/dL (80-115); Lipase 22 U/L (8-78); PTT 26.6 sec (22.9-36.1); Potassium 5.2 mmol/L (3.5-5.1); Protein, Total 7.1 g/dL (5.8-8.1); Prothrombin Time 13.4 sec (12.0-14.7); Sodium 141 mmol/L (136-145)
[2024-07-31 21:14] LABS: D-Dimer Test 3.02 mcg/mL (0.27-0.43)
[2024-07-31] MEDS ORDERED: Ipratropium/Albuterol 3 ML NEB ONE (21:39)
[2024-07-31] MEDS ORDERED: Acetaminophen 325 MG TAB PO PRN (21:50)
[2024-07-31] MEDS ORDERED: traMADol HCl 50 MG TAB PO PRN (21:50)
[2024-07-31] MEDS ORDERED: Ondansetron ODT 4 MG TAB PO PRN (21:50)
[2024-07-31] MEDS ORDERED: Ondansetron PF 4 MG/2 ML Vial IVP PRN (21:50)
[2024-07-31 21:58] LABS: Troponin I 0.901 ng/mL (< 0.028)
[2024-07-31 23:02] LABS: Hematocrit 39.9 % (42.0-52.0); Hemoglobin 13.1 g/dL (14.0-18.0)
[2024-07-31] MEDS ORDERED: Furosemide 40 MG (4 mL) VIAL ONE (23:09)
[2024-07-31 23:27] LABS: Hemoglobin A1c 5.8 % (4.0-6.0); Iron 41 ug/dL (65-175); Iron Binding Capacity, Total 351 mcg/dL (261-462)
[2024-07-31] MEDS ORDERED: Enoxaparin 100 MG (1 mL) SYRINGE ONE (23:50)
[2024-07-31 23:51] LABS: Troponin I 2.003 ng/mL (< 0.028)
[2024-07-31] MEDS ORDERED: Enoxaparin 60 MG (0.6 mL) SYRINGE ONE (23:51)
[2024-07-31] MEDS ORDERED: Pantoprazole 40 MG VIAL ONE (23:56)
[2024-08-01] MEDS: Pantoprazole 40 MG VIAL IVP SCH ×2 (00:40→11:28)
[2024-08-01 03:44] LABS: #Basophils Less than 0.03 10x3/uL (0.0-0.2); #Eosinophils Less than 0.03 10x3/uL (0.0-0.7); %Basophils 0.1 % (0.0-1.0); %Lymphocytes 7.6 % (21.0-51.0); %Monocytes 0.7 % (0.0-10.0); %Neutrophils 91.1 % (42.0-75.0); Hematocrit 42.3 % (42.0-52.0); Hemoglobin 13.6 g/dL (14.0-18.0); Mean Corpuscular HGB CONC 32.2 g/dL (32.0-36.0); Mean Corpuscular Hemoglobin 27.9 pg (27.0-31.0); Mean Corpuscular Volume 86.7 fL (78.0-98.0); Mean Platelet Volume 9.8 fL (7.4-10.4); Platelet Count 353 10x3/uL (130-400); Red Blood Cell (RBC) Count 4.88 mill/uL (4.70-6.10)
[2024-08-01 04:05] LABS: ALT (SGPT) 26 U/L (8-55); AST (SGOT) 65 U/L (5-34); Albumin 3.5 g/dL (3.4-4.8); Alkaline Phosphatase 106 U/L (40-110); Anion Gap 16 mmol/L (10-20); BUN (Urea Nitrogen) 31 mg/dL (8.4-25.7); Bilirubin, Total 0.3 mg/dL (0.2-1.2); Calc. Creatinine Clearance 0 mL/min (70-130); Calcium 9.3 mg/dL (7.8-10.44); Carbon Dioxide 21 mmol/L (23-31); Chloride 109 mmol/L (98-107); Estimated GFR 24; Glucose 175 mg/dL (80-115); Potassium 4.6 mmol/L (3.5-5.1); Protein, Total 7.5 g/dL (5.8-8.1); Sodium 141 mmol/L (136-145)
[2024-08-01 04:39] VITALS: BMI 31.4
[2024-08-01 04:58] LABS: Troponin I 6.663 ng/mL (< 0.028)
[2024-08-01 08:17] LABS: Hemoglobin 13.6 g/dL (14.0-18.0); Platelet Count 280 10x3/uL (130-400)
[2024-08-01] MEDS ORDERED: Heparin 5,000 UNITS/ML VIAL SC SCH (09:00)
[2024-08-01] MEDS ORDERED: cloNIDine 0.1 MG TAB ONE (09:19)
[2024-08-01] MEDS ORDERED: Heparin 25,000 units/D5W 500 ML ONE (09:19)
[2024-08-01] MEDS ORDERED: Pantoprazole 40 MG VIAL ONE (09:19)
[2024-08-01] MEDS ORDERED: Budesonide 0.5 MG/2 ML NEB ONE (09:45)
[2024-08-01] MEDS: Budesonide 0.5 MG/2 ML NEB INH SCH (09:52)
[2024-08-01] MEDS: Arformoterol 15 MCG/2 ML NEB NEB SCH (10:02)
[2024-08-01] MEDS ORDERED: Glucagon 1 MG/ML KIT IM PRN (10:30)
[2024-08-01] MEDS ORDERED: Insulin Lispro 100 UNIT/ML 10 ML VIAL SC PRN ×2 (10:30→10:31)
[2024-08-01] MEDS ORDERED: Dextrose 5% in Water 1,000 ML IV PRN (10:30)
[2024-08-01] MEDS ORDERED: Dextrose 50% Abboject 50 ML SYRINGE SLOW IVP PRN (10:30)
[2024-08-01] MEDS: cloNIDine 0.2 MG TAB PO SCH (11:28)
[2024-08-01] MEDS: Verapamil 180 MG ER.TAB PO SCH (11:28)
[2024-08-01] MEDS: Heparin 25,000 units/D5W 500 ML IVPB SCH (11:29)
[2024-08-01] MEDS ORDERED: Furosemide 40 MG (4 mL) VIAL ONE (13:46)
[2024-08-01] MEDS ORDERED: Furosemide 20 MG (2 mL) VIAL ONE (13:46)
[2024-08-01 14:00] LABS: Hematocrit 39.7 % (42.0-52.0); Hemoglobin 13.1 g/dL (14.0-18.0)
[2024-08-01] MEDS: Furosemide 40 MG (4 mL) VIAL SLOW IVP SCH (14:16)
[2024-08-01 14:46] LABS: Troponin I 20.083 ng/mL (< 0.028)
[2024-08-01] MEDS ORDERED: Sodium Chloride 0.9% 1,000 ML IV SCH (17:15)
[2024-08-01] MEDS: Heparin 10,000 UNITS/ 10 ML VIAL SLOW IVP SCH (20:06)
[2024-08-01] MEDS: Aspirin Chewable 81 MG TAB PO SCH (20:07)
[2024-08-01] MEDS: cefTRIAXone\\ROCEPHIN 1 GM in Sodium Chloride 0.9% 100 ML IVPB SCH (21:45)
[2024-08-01] MEDS: FLU (Fluad Triv) TS24-25 (65UP)/MF59C/PF 45 MCG/0.5 ML Syringe IM ONE (21:45)
[2024-08-02] MEDS: Sodium Chloride 0.9% 1,000 ML IV SCH (00:15)
[2024-08-02 03:31] LABS: #Basophils Less than 0.03 10x3/uL (0.0-0.2); #Eosinophils Less than 0.03 10x3/uL (0.0-0.7); %Basophils 0.2 % (0.0-1.0); %Eosinophils 0.1 % (0.0-10.0); %Lymphocytes 10.1 % (21.0-51.0); %Monocytes 6.4 % (0.0-10.0); %Neutrophils 82.8 % (42.0-75.0); Hemoglobin 12.5 g/dL (14.0-18.0); Mean Corpuscular HGB CONC 32.1 g/dL (32.0-36.0); Mean Corpuscular Hemoglobin 28.3 pg (27.0-31.0); Mean Corpuscular Volume 88.2 fL (78.0-98.0); Mean Platelet Volume 10.7 fL (7.4-10.4); Platelet Count 213 10x3/uL (130-400); RBC Distribution Width 14.1 % (11.5-14.5); Red Blood Cell (RBC) Count 4.42 mill/uL (4.70-6.10)
[2024-08-02] MEDS ORDERED: Communication Order-Pharmacy FS SCH (06:00)
[2024-08-02] MEDS ORDERED: Furosemide 40 MG (4 mL) VIAL SLOW IVP SCH ×2 (06:00→16:00)
[2024-08-02 06:07] LABS: Anion Gap 15 mmol/L (10-20); BUN (Urea Nitrogen) 39 mg/dL (8.4-25.7); Calc. Creatinine Clearance 43 mL/min (70-130); Calcium 8.6 mg/dL (7.8-10.44); Carbon Dioxide 23 mmol/L (23-31); Chloride 108 mmol/L (98-107); Estimated GFR 27; Glucose 139 mg/dL (80-115); Potassium 4.2 mmol/L (3.5-5.1); Sodium 142 mmol/L (136-145)
[2024-08-02] MEDS ORDERED: Iopamidol 370 76% 100 ML VIAL ONE (09:32)
[2024-08-02] MEDS ORDERED: Midazolam HCl 2 mg/2 ml Vial ONE (09:53)
[2024-08-02] MEDS ORDERED: fentaNYL 50 mcg/mL 1 mL Vial ONE (09:53)
[2024-08-02] MEDS ORDERED: Nitroglycerin 50 MG/250 ML BOT 0 ML ONE (09:53)
[2024-08-02] MEDS ORDERED: Heparin 10,000 UNITS/ 10 ML VIAL ONE (09:53)
[2024-08-02] MEDS ORDERED: Sodium Chloride 0.9% 200 ML IV PRN (13:08)
[2024-08-02] MEDS ORDERED: Nitroglycerin 0.4 MG TAB (25 Tab Bottle) SL PRN (13:08)
[2024-08-02] MEDS: Furosemide 40 MG (4 mL) VIAL SLOW IVP SCH (18:21)
[2024-08-02] MEDS: Atorvastatin Calcium 40 MG TAB PO SCH (21:19)
[2024-08-02] MEDS: Acetaminophen/Codeine 30-300mg Tablet PO PRN (21:34)
[2024-08-02 23:57] LABS: Prothrombin Time 13.6 sec (12.0-14.7)
[2024-08-02 23:58] LABS: PTT 80.1 sec (22.9-36.1)
[2024-08-03 05:24] LABS: #Basophils 0.03 10x3/uL (0.0-0.2); %Basophils 0.4 % (0.0-1.0); %Eosinophils 0.5 % (0.0-10.0); %Monocytes 6.2 % (0.0-10.0); %Neutrophils 67.5 % (42.0-75.0); Hematocrit 40.4 % (42.0-52.0); Hemoglobin 13.7 g/dL (14.0-18.0); Mean Corpuscular HGB CONC 33.9 g/dL (32.0-36.0); Mean Corpuscular Hemoglobin 28.7 pg (27.0-31.0); Mean Corpuscular Volume 84.7 fL (78.0-98.0); Mean Platelet Volume 10.3 fL (7.4-10.4); Platelet Count 277 10x3/uL (130-400); RBC Distribution Width 14.1 % (11.5-14.5); Red Blood Cell (RBC) Count 4.77 mill/uL (4.70-6.10)
[2024-08-03 05:41] LABS: Anion Gap 16 mmol/L (10-20); BUN (Urea Nitrogen) 33 mg/dL (8.4-25.7); Calc. Creatinine Clearance 55 mL/min (70-130); Calcium 8.5 mg/dL (7.8-10.44); Carbon Dioxide 21 mmol/L (23-31); Cardiac Risk 5.6 (Less than 4.5); Chloride 107 mmol/L (98-107); Cholesterol 236 mg/dl (< 200 Desired); Estimated GFR 36; Glucose 103 mg/dL (80-115); HDL Cholesterol 42 mg/dL (>60 Neg Risk); LDL Cholesterol, Calculated 143 mg/dL; Potassium 4.2 mmol/L (3.5-5.1); Sodium 140 mmol/L (136-145); Triglycerides 256 mg/dL (Less than 150)
[2024-08-03] MEDS: Ipratropium/Albuterol 3 ML NEB NEB PRN (06:56)
[2024-08-04 07:19] LABS: #Basophils 0.05 10x3/uL (0.0-0.2); %Basophils 0.7 % (0.0-1.0); %Eosinophils 3.2 % (0.0-10.0); %Lymphocytes 26.6 % (21.0-51.0); %Monocytes 6.5 % (0.0-10.0); Hematocrit 39.7 % (42.0-52.0); Hemoglobin 12.9 g/dL (14.0-18.0); Mean Corpuscular HGB CONC 32.5 g/dL (32.0-36.0); Mean Corpuscular Volume 86.3 fL (78.0-98.0); Platelet Count 252 10x3/uL (130-400); RBC Distribution Width 13.9 % (11.5-14.5)
[2024-08-04 07:55] LABS: Anion Gap 14 mmol/L (10-20); BUN (Urea Nitrogen) 28 mg/dL (8.4-25.7); Calc. Creatinine Clearance 63 mL/min (70-130); Calcium 8.4 mg/dL (7.8-10.44); Carbon Dioxide 21 mmol/L (23-31); Chloride 106 mmol/L (98-107); Estimated GFR 42; Glucose 109 mg/dL (80-115); Sodium 137 mmol/L (136-145)
[2024-08-05 05:53] LABS: #Basophils 0.04 10x3/uL (0.0-0.2); %Basophils 0.6 % (0.0-1.0); %Eosinophils 3.7 % (0.0-10.0); %Lymphocytes 24.2 % (21.0-51.0); %Monocytes 6.3 % (0.0-10.0); %Neutrophils 63.7 % (42.0-75.0); Hematocrit 38.1 % (42.0-52.0); Hemoglobin 12.8 g/dL (14.0-18.0); Mean Corpuscular HGB CONC 33.6 g/dL (32.0-36.0); Mean Corpuscular Hemoglobin 27.7 pg (27.0-31.0); Mean Corpuscular Volume 82.5 fL (78.0-98.0); Mean Platelet Volume 10.8 fL (7.4-10.4); Platelet Count 287 10x3/uL (130-400); RBC Distribution Width 14.1 % (11.5-14.5); Red Blood Cell (RBC) Count 4.62 mill/uL (4.70-6.10)
[2024-08-05] MEDS ORDERED: Communication Order-Pharmacy FS ONE (06:00)
[2024-08-05 06:07] LABS: Anion Gap 14 mmol/L (10-20); BUN (Urea Nitrogen) 25 mg/dL (8.4-25.7); Calc. Creatinine Clearance 66 mL/min (70-130); Calcium 8.6 mg/dL (7.8-10.44); Carbon Dioxide 20 mmol/L (23-31); Chloride 106 mmol/L (98-107); Estimated GFR 44; Glucose 121 mg/dL (80-115); Potassium 4.1 mmol/L (3.5-5.1); Sodium 136 mmol/L (136-145)
[2024-08-05] MEDS ORDERED: Dexamethasone 4 mg/ml Vial ONE (07:13)
[2024-08-05] MEDS ORDERED: PHENYLEPHRINE-NS 100 MCG/ML 10 ML SYRINGE ONE (07:14)
[2024-08-05] MEDS ORDERED: Albumin 5% 500 ML ONE (07:14)
[2024-08-05] MEDS ORDERED: Bupivacaine PF 0.5% 30 ML VIAL ONE (07:14)
[2024-08-05] MEDS ORDERED: EPINEPHrine 1 MG/ML VIAL ONE (07:14)
[2024-08-05] MEDS ORDERED: Heparin 10,000 UNITS/1 ML VIAL 30,000 UNITS in Sodium Chloride 0.9% 1,000 ML FS SCH (07:30)
[2024-08-05] MEDS ORDERED: ePHEDrine Sulfate 50 MG/10 ML VIAL ONE (08:21)
[2024-08-05] MEDS ORDERED: Esmolol 100 MG/10 ML VIAL ONE (08:51)
[2024-08-05] MEDS ORDERED: Fentanyl 250 MCG/5 ML VIAL ONE ×2 (08:58→09:59)
[2024-08-05] MEDS: Esmolol 100 MG/10 ML VIAL IVP SCH (08:58)
[2024-08-05] MEDS ORDERED: Midazolam HCl 2 mg/2 ml Vial ONE ×3 (08:59→11:39)
[2024-08-05] MEDS ORDERED: CEFAZOLIN 2 GM VIAL ONE (08:59)
[2024-08-05] MEDS ORDERED: PROPOFOL 20 ML ONE (08:59)
[2024-08-05] MEDS ORDERED: Potassium Chloride 60 mEq (30 mL) VIAL ONE (09:24)
[2024-08-05] MEDS ORDERED: Vancomycin 1 GM VIAL ONE (09:24)
[2024-08-05] MEDS ORDERED: Lidocaine 2% PF 100 mg/5 ml Syringe ONE (09:24)
[2024-08-05] MEDS ORDERED: Sodium Bicarb 50 mEq/50 ML VIAL ONE (09:24)
[2024-08-05] MEDS ORDERED: Calcium Chloride 1 GM/10 ML Abboject SYRINGE ONE (09:24)
[2024-08-05] MEDS ORDERED: Rocuronium Bromide 10 MG/ML (10ML VIAL) ONE (09:24)
[2024-08-05] MEDS ORDERED: Thrombin 5000 UNITS/5 ML VIAL ONE (09:24)
[2024-08-05] MEDS ORDERED: Protamine Sulfate 250 MG/25 ML VIAL ONE (09:24)
[2024-08-05] MEDS ORDERED: Papaverine 60 MG/2 ML VIAL ONE (09:24)
[2024-08-05] MEDS ORDERED: Mannitol 12.5 GM/50 ML ONE (09:24)
[2024-08-05] MEDS ORDERED: Aminocaproic Acid 5 GM/20 ML VIAL ONE (09:24)
[2024-08-05] MEDS ORDERED: Heparin 5,000 UNITS/ML VIAL ONE (09:24)
[2024-08-05] MEDS ORDERED: Heparin 30,000 units/30 ml VIAL ONE (09:24)
[2024-08-05] MEDS ORDERED: Cardioplegic Soln 1,000 ML BAG ONE (09:24)
[2024-08-05] MEDS ORDERED: Magnesium 5 GM/10 ML VIAL ONE (09:24)
[2024-08-05] MEDS ORDERED: CEFAZOLIN 2 GM in Sodium Chloride 0.9% 100 ML IVPB SCH (10:00)
[2024-08-05] MEDS ORDERED: Vecuronium 10 MG VIAL ONE (10:07)
[2024-08-05] MEDS ORDERED: Heparin 10,000 UNITS/ 10 ML VIAL ONE (10:18)
[2024-08-05] MEDS ORDERED: Protamine Sulfate 50 MG/5 ML VIAL ONE (11:26)
[2024-08-05] MEDS ORDERED: fentaNYL PF 100 MCG/2 ML SYRINGE ONE (12:20)
[2024-08-05] MEDS ORDERED: NOREPINEPHRINE 8 MG/250 ML-D5W 250 ML IVPB PRN (12:35)
[2024-08-05] MEDS ORDERED: Bisacodyl 5 MG TAB PO PRN (12:35)
[2024-08-05] MEDS ORDERED: traMADol HCl 50 MG TAB PO PRN (12:35)
[2024-08-05] MEDS ORDERED: Albumin 5% 12.5 GM (250 mL) BOT IVPB PRN (12:35)
[2024-08-05] MEDS ORDERED: Ipratropium/Albuterol 3 ML NEB NEB PRN (12:35)
[2024-08-05] MEDS ORDERED: Mag-Al 1200 mg/1200 mg/30 ML UDCUP PO PRN (12:35)
[2024-08-05] MEDS ORDERED: Hetastarch 6% 500 ML 500 ML IVPB PRN (12:35)
[2024-08-05] MEDS ORDERED: Potassium Chloride 20 MEQ (100 mL) BAG IVPB PRN (12:35)
[2024-08-05] MEDS ORDERED: Bisacodyl 10 MG SUPP PR PRN (12:35)
[2024-08-05 13:08] LABS: Actual Bicarbonate (HCO3a) 22.4 mEq/L (22-28); Base Excess (BEa) -3.7 mEq/L (-2.0 to +3.0); CO2 Tension 44.5 mmHg (35.0-45.0); Calcium, Ionized (arterial) 1.18 mmol/L (1.12-1.30); Carboxyhemoglobin (COHb) 0.8 gm% (0.0-3.0); Hematocrit-ABG 37 % (42.0-52.0); Hemoglobin (Hb) 12.5 g/dL (14.0-18.0); O2 Tension (PaO2), arterial 76.5 mmHg (> 80.0); Potassium - ABG Lab 4.51 mmol/L (3.70-5.30); pH, Arterial 7.319 (7.35-7.45)
[2024-08-05 13:10] LABS: ALV-art Gradient 295.675 mmHg (0-20); Puncture Site Arterial Line
[2024-08-05] MEDS ORDERED: Insulin Reg, Human 100 UNITS in Sodium Chloride 0.9% 100 ML IVPB SCH (13:15)
[2024-08-05] MEDS ORDERED: Dextrose 50% Abboject 50 ML SYRINGE SLOW IVP PRN (13:15)
[2024-08-05] MEDS ORDERED: Glucagon 1 MG/ML KIT SC PRN (13:15)
[2024-08-05] MEDS ORDERED: Dextrose 5% in Water 1,000 ML IV PRN (13:15)
[2024-08-05 13:33] LABS: #Basophils 0.06 10x3/uL (0.0-0.2); %Basophils 0.5 % (0.0-1.0); %Eosinophils 1.9 % (0.0-10.0); %Lymphocytes 14.3 % (21.0-51.0); %Monocytes 4.2 % (0.0-10.0); Hematocrit 34.7 % (42.0-52.0); Hemoglobin 11.5 g/dL (14.0-18.0); Mean Corpuscular HGB CONC 33.1 g/dL (32.0-36.0); Mean Corpuscular Volume 84.6 fL (78.0-98.0); Mean Platelet Volume 10.4 fL (7.4-10.4); Platelet Count 233 10x3/uL (130-400)
[2024-08-05] MEDS: Nitroglycerin 50 MG/250 ML BOT 250 ML IVPB PRN (13:40)
[2024-08-05 13:49] LABS: PTT 29.7 sec (22.9-36.1)
[2024-08-05 13:50] LABS: INR-International Normal Ratio 1.1
[2024-08-05] MEDS: Morphine 2 MG/ML VIAL SLOW IVP PRN (13:53)
[2024-08-05 13:54] LABS: Anion Gap 10 mmol/L (10-20); BUN (Urea Nitrogen) 21 mg/dL (8.4-25.7); Calc. Creatinine Clearance 70 mL/min (70-130); Calcium 7.8 mg/dL (7.8-10.44); Carbon Dioxide 22 mmol/L (23-31); Chloride 111 mmol/L (98-107); Estimated GFR 47; Glucose 139 mg/dL (80-115); Potassium 4.5 mmol/L (3.5-5.1); Sodium 138 mmol/L (136-145)
[2024-08-05] MEDS: Insulin Regular, Human 100 UNIT/ML 10 ML VIAL SC PRN (13:55)
[2024-08-05] MEDS: D5 1/2 NS w/20 mEq KCL 1,000 ML IV SCH (13:59)
[2024-08-05] MEDS: Hydrocortisone Sod Succ/PF 100 mg/2 ml Vial IVP SCH (14:00)
[2024-08-05] MEDS: Magnesium 2 GM/50 ML(in water) 2 GM in Premix 1 BAG IVPB SCH (14:02)
[2024-08-05] MEDS: Albumin 5% 12.5 GM (250 mL) BOT IVPB PRN (16:29)
[2024-08-05] MEDS: CEFAZOLIN 2 GM in Sodium Chloride 0.9% 100 ML IVPB SCH (16:29)
[2024-08-05 16:31] LABS: Actual Bicarbonate (HCO3a) 18.4 mEq/L (22-28); Base Excess (BEa) -6.5 mEq/L (-2.0 to +3.0); CO2 Tension 34.5 mmHg (35.0-45.0); Calcium, Ionized (arterial) 1.18 mmol/L (1.12-1.30); Carboxyhemoglobin (COHb) 0.5 gm% (0.0-3.0); Hematocrit-ABG 39 % (42.0-52.0); Hemoglobin (Hb) 13.2 g/dL (14.0-18.0); O2 Tension (PaO2), arterial 75.7 mmHg (> 80.0); Potassium - ABG Lab 4.86 mmol/L (3.70-5.30); pH, Arterial 7.344 (7.35-7.45)
[2024-08-05 16:33] LABS: ALV-art Gradient 166.375 mmHg (0-20); Puncture Site Arterial Line
[2024-08-05] MEDS: INSULIN REGULAR IN 0.9 % NACL 100 UNITS in Premix 1 BAG IVPB SCH (16:52)
[2024-08-05 18:59] LABS: Hematocrit 37.1 % (42.0-52.0); Hemoglobin 11.9 g/dL (14.0-18.0)
[2024-08-05 19:15] LABS: Potassium 4.9 mmol/L (3.5-5.1)
[2024-08-05] MEDS: traMADol HCl 50 MG TAB PO PRN (20:07)
[2024-08-05] MEDS: Famotidine/PF 20 mg/2ml Vial SLOW IVP SCH (20:07)
[2024-08-05] MEDS: fentaNYL 50 mcg/mL 1 mL Vial SLOW IVP PRN (21:08)
[2024-08-06 05:30] LABS: #Basophils 0.04 10x3/uL (0.0-0.2); #Eosinophils Less than 0.03 10x3/uL (0.0-0.7); %Basophils 0.3 % (0.0-1.0); %Eosinophils 0.1 % (0.0-10.0); %Lymphocytes 6.5 % (21.0-51.0); %Monocytes 5.2 % (0.0-10.0); Hematocrit 37.7 % (42.0-52.0); Hemoglobin 11.9 g/dL (14.0-18.0); Mean Corpuscular HGB CONC 31.6 g/dL (32.0-36.0); Mean Corpuscular Volume 88.7 fL (78.0-98.0); Mean Platelet Volume 11.1 fL (7.4-10.4); Platelet Count 273 10x3/uL (130-400); RBC Distribution Width 14.3 % (11.5-14.5); Red Blood Cell (RBC) Count 4.25 mill/uL (4.70-6.10)
[2024-08-06 05:40] LABS: Anion Gap 13 mmol/L (10-20); BUN (Urea Nitrogen) 22 mg/dL (8.4-25.7); Calc. Creatinine Clearance 65 mL/min (70-130); Calcium 8.4 mg/dL (7.8-10.44); Carbon Dioxide 21 mmol/L (23-31); Chloride 107 mmol/L (98-107); Estimated GFR 43; Glucose 117 mg/dL (80-115); Sodium 136 mmol/L (136-145)
[2024-08-06] MEDS: Ondansetron PF 4 MG/2 ML Vial IVP PRN (06:13)
[2024-08-06] MEDS ORDERED: Albuterol 200 PUFF (6.7GM INHALER) INH PRN (07:38)
[2024-08-06] MEDS ORDERED: METHYLPREDNISOLONE 4 MG PO SCH (09:00)
[2024-08-06] MEDS: Pantoprazole DR 40 MG TAB PO SCH (10:05)
[2024-08-06] MEDS: Allopurinol 100 MG TAB PO SCH (10:05)
[2024-08-06] MEDS: Aspirin 325 MG TAB PO SCH (10:05)
[2024-08-06] MEDS: Magnesium 2 GM/50 ML(in water) 2 GM in Premix 1 BAG IVPB SCH (10:05)
[2024-08-06 10:10] LABS: Analyzer IN Cardio OR; CO2 Tension 49.8 mmHg (35.0-45.0); Calcium, Ionized (arterial) 1.14 mmol/L (1.12-1.30); Carboxyhemoglobin (COHb) 0.1 gm% (0.0-3.0); Hematocrit-ABG 39 % (42.0-52.0); Hemoglobin (Hb) 13.3 g/dL (14.0-18.0); O2 Tension (PaO2), arterial 271.4 mmHg (> 80.0); Potassium - ABG Lab 4.46 mmol/L (3.70-5.30); pH, Arterial 7.282 (7.35-7.45)
[2024-08-06 10:10] LABS: Actual Bicarbonate (HCO3a) 28.9 mEq/L (22-28); Analyzer IN Cardio OR; Base Excess (BEa) 0.4 mEq/L (-2.0 to +3.0); Calcium, Ionized (arterial) 1.11 mmol/L (1.12-1.30); Carboxyhemoglobin (COHb) 0.1 gm% (0.0-3.0); Hematocrit-ABG 38 % (42.0-52.0); Hemoglobin (Hb) 12.9 g/dL (14.0-18.0); O2 Tension (PaO2), arterial 247.7 mmHg (> 80.0); Potassium - ABG Lab 4.97 mmol/L (3.70-5.30); pH, Arterial 7.262 (7.35-7.45)
[2024-08-06 10:10] LABS: Actual Bicarbonate (HCO3a) 23.9 mEq/L (22-28); Analyzer IN Cardio OR; Base Excess (BEa) -1.1 mEq/L (-2.0 to +3.0); CO2 Tension 40.7 mmHg (35.0-45.0); Calcium, Ionized (arterial) 1.13 mmol/L (1.12-1.30); Carboxyhemoglobin (COHb) 0.2 gm% (0.0-3.0); Hematocrit-ABG 38 % (42.0-52.0); Potassium - ABG Lab 4.24 mmol/L (3.70-5.30); pH, Arterial 7.386 (7.35-7.45)
[2024-08-06 10:11] LABS: Actual Bicarbonate (HCO3a) 23.6 mEq/L (22-28); Analyzer IN Cardio OR; Base Excess (BEa) -2.3 mEq/L (-2.0 to +3.0); CO2 Tension 45.4 mmHg (35.0-45.0); Carboxyhemoglobin (COHb) 0.3 gm% (0.0-3.0); Hematocrit-ABG 28 % (42.0-52.0); Hemoglobin (Hb) 9.5 g/dL (14.0-18.0); O2 Tension (PaO2), arterial 125.8 mmHg (> 80.0); Potassium - ABG Lab 4.73 mmol/L (3.70-5.30); pH, Arterial 7.333 (7.35-7.45)
[2024-08-06 10:11] LABS: Puncture Site Arterial Line
[2024-08-06 10:12] LABS: CO2 Tension 65.5 mmHg (35.0-45.0); Puncture Site Arterial Line
[2024-08-06 10:13] LABS: Puncture Site Arterial Line
[2024-08-06 10:13] LABS: Puncture Site Arterial Line
[2024-08-06] MEDS: cefTRIAXone\\ROCEPHIN 1 GM in Sodium Chloride 0.9% 100 ML IVPB SCH (11:33)
[2024-08-06] MEDS: Sodium Chloride 0.9% 100 ML ONE (11:34)
[2024-08-06] MEDS: hydrALAZINE 20 MG/ML VIAL SLOW IVP PRN (12:36)
[2024-08-06] MEDS ORDERED: Insulin Glargine 30 UNITS/0.3 ML VIAL SC PRN (13:15)
[2024-08-06] MEDS: fentaNYL 50 mcg/mL 1 mL Vial SLOW IVP PRN (18:20)
[2024-08-06] MEDS: Arformoterol 15 MCG/2 ML NEB NEB SCH (19:08)
[2024-08-06] MEDS: Mometasone 200 MCG/Formoterol 5 MCG 120 PUFF INHALER INH SCH (19:12)
[2024-08-06] MEDS: Ezetimibe 10 MG TAB PO SCH (20:31)
[2024-08-06] MEDS: Guaifenesin DM 100-10/5 ML UDCUP PO PRN (20:31)
[2024-08-06] MEDS: diphenhydrAMINE 25 MG CAP PO PRN (21:09)
[2024-08-07 06:27] LABS: #Basophils 0.07 10x3/uL (0.0-0.2); %Basophils 0.5 % (0.0-1.0); %Eosinophils 0.2 % (0.0-10.0); %Lymphocytes 12.3 % (21.0-51.0); %Monocytes 9.3 % (0.0-10.0); %Neutrophils 76.7 % (42.0-75.0); Hematocrit 36.8 % (42.0-52.0); Mean Corpuscular HGB CONC 32.6 g/dL (32.0-36.0); Mean Corpuscular Hemoglobin 28.1 pg (27.0-31.0); Mean Corpuscular Volume 86.2 fL (78.0-98.0); Mean Platelet Volume 10.9 fL (7.4-10.4); Platelet Count 318 10x3/uL (130-400); RBC Distribution Width 14.5 % (11.5-14.5); Red Blood Cell (RBC) Count 4.27 mill/uL (4.70-6.10)
[2024-08-07 06:38] LABS: Anion Gap 16 mmol/L (10-20); BUN (Urea Nitrogen) 26 mg/dL (8.4-25.7); Calc. Creatinine Clearance 60 mL/min (70-130); Calcium 8.9 mg/dL (7.8-10.44); Carbon Dioxide 22 mmol/L (23-31); Chloride 102 mmol/L (98-107); Estimated GFR 39; Glucose 114 mg/dL (80-115); Potassium 4.6 mmol/L (3.5-5.1); Sodium 135 mmol/L (136-145)
[2024-08-07] MEDS ORDERED: methylPREDNISolone 4 mg Tablet PO SCH ×2 (08:00→21:00)
[2024-08-07] MEDS: Carvedilol 3.125 MG TAB PO SCH (08:03)
[2024-08-07] MEDS: HYDROcodone/Acetaminophen 5/325 mg Tablet PO PRN (08:07)
[2024-08-07] MEDS ORDERED: Mineral Oil ENEMA PR PRN (19:20)
[2024-08-07] MEDS ORDERED: Milk Of Magnesia 30 ML UDCUP PO PRN (19:20)
[2024-08-07] MEDS ORDERED: Artificial Tear Ophth Sol 15 ML BOT EA EYE PRN (19:20)
[2024-08-07] MEDS ORDERED: Nitroglycerin 0.4 MG TAB (25 Tab Bottle) SL PRN (19:20)
[2024-08-07] MEDS: Furosemide 40 MG TAB PO SCH (20:57)
[2024-08-07] MEDS: Aspirin 325 MG TAB PO SCH (20:57)
[2024-08-08] MEDS: HYDROcodone/Acetaminophen 5/325 mg Tablet PO PRN (02:54)
[2024-08-08 05:40] LABS: Anion Gap 16 mmol/L (10-20); BUN (Urea Nitrogen) 32 mg/dL (8.4-25.7); Calc. Creatinine Clearance 55 mL/min (70-130); Calcium 8.1 mg/dL (7.8-10.44); Carbon Dioxide 16 mmol/L (23-31); Chloride 107 mmol/L (98-107); Estimated GFR 35; Glucose 144 mg/dL (80-115); Potassium 4.6 mmol/L (3.5-5.1); Sodium 134 mmol/L (136-145)
[2024-08-08] MEDS ORDERED: Furosemide 40 MG TAB PO SCH (07:30)
[2024-08-08] MEDS ORDERED: methylPREDNISolone 4 mg Tablet PO SCH (08:00)
[2024-08-08 09:04] LABS: #Basophils 0.05 10x3/uL (0.0-0.2); %Basophils 0.4 % (0.0-1.0); %Lymphocytes 14.4 % (21.0-51.0); %Monocytes 9.3 % (0.0-10.0); %Neutrophils 73.7 % (42.0-75.0); Hematocrit 33.2 % (42.0-52.0); Hemoglobin 10.9 g/dL (14.0-18.0); Mean Corpuscular HGB CONC 32.8 g/dL (32.0-36.0); Mean Corpuscular Hemoglobin 28.2 pg (27.0-31.0); Mean Corpuscular Volume 85.8 fL (78.0-98.0); Mean Platelet Volume 11.1 fL (7.4-10.4); Platelet Count 280 10x3/uL (130-400); RBC Distribution Width 14.4 % (11.5-14.5); Red Blood Cell (RBC) Count 3.87 mill/uL (4.70-6.10)
[2024-08-08] MEDS: Aspirin 325 mg Enteric Coated Tablet PO SCH (09:33)
[2024-08-08 11:40] VITALS: BMI 31.8
[2024-08-09 05:56] LABS: #Basophils 0.07 10x3/uL (0.0-0.2); %Basophils 0.6 % (0.0-1.0); %Lymphocytes 18.5 % (21.0-51.0); %Monocytes 8.4 % (0.0-10.0); %Neutrophils 69.3 % (42.0-75.0); Hemoglobin 11.9 g/dL (14.0-18.0); Mean Corpuscular HGB CONC 33.1 g/dL (32.0-36.0); Mean Corpuscular Hemoglobin 28.1 pg (27.0-31.0); Mean Corpuscular Volume 85.1 fL (78.0-98.0); Mean Platelet Volume 11.2 fL (7.4-10.4); Platelet Count 388 10x3/uL (130-400); RBC Distribution Width 14.3 % (11.5-14.5); Red Blood Cell (RBC) Count 4.23 mill/uL (4.70-6.10)
[2024-08-09 06:30] LABS: Anion Gap 19 mmol/L (10-20); BUN (Urea Nitrogen) 31 mg/dL (8.4-25.7); Calc. Creatinine Clearance 55 mL/min (70-130); Calcium 9.2 mg/dL (7.8-10.44); Carbon Dioxide 19 mmol/L (23-31); Chloride 105 mmol/L (98-107); Estimated GFR 36; Glucose 113 mg/dL (80-115); Phosphorus 3.3 mg/dL (2.3-4.7); Potassium 4.7 mmol/L (3.5-5.1); Sodium 138 mmol/L (136-145)
[2024-08-09] MEDS ORDERED: methylPREDNISolone 4 mg Tablet PO SCH (08:00)
[2024-08-09] MEDS: Acetaminophen 325 MG TAB PO PRN (09:03)
[2024-08-09] MEDS: NIFEdipine XL 30 MG ER.TAB PO SCH (09:03)
[2024-08-09 17:13] VITALS: BP 145/82; TEMP 97.3
[2024-08-10] MEDS ORDERED: methylPREDNISolone 4 mg Tablet PO SCH (08:00)
[2024-08-10] MEDS ORDERED: NIFEdipine XL 30 MG ER.TAB PO SCH (09:00)
[2024-08-11] MEDS ORDERED: methylPREDNISolone 4 mg Tablet PO SCH (08:00)
== END 2024-08-09 18:09 | disposition home or self-care (01) | DRG 233 ==
LOC: ERS 19:42 → ERHOLD 21:53 → OBSVTOIN 08-01 10:14 → OBS 08-01 17:17 → CCU 08-05 12:32 → 2NO 08-07 18:45
PROVIDERS: ADMIT Internal Medicine; ATTEND Internal Medicine
PROC: 4A023N7 Measurement of Cardiac Sampling and Pressure, Left Heart, Percutaneous Approach (ICD-10-PCS; principal; 2024-08-01)
PROC: B2111ZZ Fluoroscopy of Multiple Coronary Arteries using Low Osmolar Contrast (ICD-10-PCS; 2024-08-01)
PROC: 02100Z9 Bypass Coronary Artery, One Artery from Left Internal Mammary, Open Approach (ICD-10-PCS; 2024-08-05)
PROC: 02110AW Bypass Coronary Artery, Two Arteries from Aorta with Autologous Arterial Tissue, Open Approach (ICD-10-PCS; 2024-08-05)
PROC: 06BQ4ZZ Excision of Left Saphenous Vein, Percutaneous Endoscopic Approach (ICD-10-PCS; 2024-08-05)
PROC: 02L70ZK Occlusion of Left Atrial Appendage, Open Approach (ICD-10-PCS; 2024-08-05)
PROC: 5A1221Z Performance of Cardiac Output, Continuous (ICD-10-PCS; 2024-08-05)
DX: I13.0 Hypertensive heart and chronic kidney disease with heart failure and stage 1 through stage 4 chronic kidney disease, or unspecified chronic kidney disease (principal); I21.4 Non-ST elevation (NSTEMI) myocardial infarction; I50.23 Acute on chronic systolic (congestive) heart failure; E87.20 Acidosis, unspecified; N18.4 Chronic kidney disease, stage 4 (severe); N17.9 Acute kidney failure, unspecified; N25.81 Secondary hyperparathyroidism of renal origin; E11.22 Type 2 diabetes mellitus with diabetic chronic kidney disease; I25.10 Atherosclerotic heart disease of native coronary artery without angina pectoris; D63.1 Anemia in chronic kidney disease; E78.5 Hyperlipidemia, unspecified; J44.9 Chronic obstructive pulmonary disease, unspecified; D72.829 Elevated white blood cell count, unspecified; E55.9 Vitamin D deficiency, unspecified; Z98.52 Vasectomy status
CPT/HCPCS: 36415; 36416; 36430; 71045; 80048; 80053; 80061; 82306; 82728; 82805; 83010; 83036; 83540; 83550; 83605; 83690; 83880; 83970; 84100; 84145; 84484; 85025; 85046; 85347; 85379; 85610; 85730; 86141; 86850; 86900; 86901; 87040; 87077; 87149; 87428; 90653; 93005; 93010; 93306; 93458; 93798; 94002; 94640; 94760; 96374; 96375; 97139; 99152; A4311; A4648; C1751; C1769; C1887; C1889; G0378; J0171; J0360; J0456; J0665; J0696; J1100; J1643; J1644; J1650; J1815; J1940; J2003; J2150; J2250; J2272; J2405; J2440; J2470; J2704; J2720; J2919; J3010; J3370; J3475; J3480; J3490; J7030; J7620; J7626; P9045; Q9967; S0017